=== PATIENT | female | born 1955 | race Caucasian/White ===

== ENCOUNTER 2018-09-19 00:56 | Inpatient (IN) | payer OTHER ==
[2018-09-19 02:52] LABS: ADD MAN DIFF? NO
[2018-09-19 02:55] LABS: BASOPHILS % 0.3 % (0.0-2.0); EOSINOPHILS # 0.1 10^3/ul (0.0-0.5); EOSINOPHILS % 0.6 % (0.0-7.0); HEMATOCRIT 42.9 % (37.0-47.0); LYMPHOCYTES # 2.1 10^3/ul (0.8-2.9); LYMPHOCYTES % 13.7 % (15.0-51.0); MEAN CORPUSCULAR HGB CONC 32.6 g/dl (32.0-37.0); MEAN CORPUSCULAR VOLUME 91.9 fl (82.0-101.0); MEAN PLATELET VOLUME 9.8 fl (7.4-10.4); MONOCYTE # 1.1 10^3/ul (0.3-0.9); MONOCYTES % 6.9 % (0.0-11.0); PLATELET COUNT 351 10^3/UL (140-415); RED BLOOD COUNT 4.67 10^6/ul (4.20-5.40); RED CELL DISTRIBUTION WIDTH 13.1 % (11.5-14.5)
[2018-09-19 02:55] LABS: WHITE BLOOD COUNT 15.3 10^3/ul (4.8-10.8)
[2018-09-19] MEDS: ONDANSETRON 4 MG INJ IV (03:08)
[2018-09-19] MEDS: KETOROLAC 15 MG INJ IV ×5 (03:09→23:28)
[2018-09-19] MEDS: LIDOCAINE/MYLANTA 40 ML BTL PO (03:10)
[2018-09-19] MEDS: BELLADONNA/PHENOBARBITAL TAB PO (03:10)
[2018-09-19 03:12] LABS: ADD UMIC YES; ALANINE AMINOTRANSFERASE 30 IU/L (13-69); ALBUMIN 4.5 g/dl (3.3-4.9); ALKALINE PHOSPHATASE 96 IU/L (42-121); ANION GAP 11 (5-13); ASPARTATE AMINO TRANSFERASE 25 IU/L (15-46); BILIRUBIN,INDIRECT 0.4 mg/dl (0-1.1); BILIRUBIN,TOTAL 0.4 mg/dl (0.2-1.3); BLOOD UREA NITROGEN 12 mg/dl (7-20); CALCIUM 9.9 mg/dl (8.4-10.2); CARBON DIOXIDE 29 mmol/L (21-31); CHLORIDE 100 mmol/L (97-110); CREATININE 0.63 mg/dl (0.44-1.00); Estimated GFR > 60 mL/min (>60); GLUCOSE 208 mg/dl (70-220); LIPASE 141 U/L (23-300); POTASSIUM 3.8 mmol/L (3.5-5.1); SODIUM 140 mmol/L (135-144); TOTAL PROTEIN 7.5 g/dl (6.1-8.1); UR ASCORBIC ACID NEGATIVE (NEGATIVE); UR BACTERIA MODERATE /HPF (NONE SEEN); UR BILIRUBIN (Dip) NEGATIVE (NEGATIVE); UR BLOOD (Dip) 2+ mg/dL (NEGATIVE); UR CLARITY SLIGHTLY CLOUDY (CLEAR); UR COLOR YELLOW (YELLOW); UR GLUCOSE (Dip) 3+ mg/dL (NEGATIVE); UR KETONES (Dip) NEGATIVE (NEGATIVE); UR LEUKOCYTE ESTERASE (Dip) 3+ Leu/ul (NEGATIVE); UR NITRITE (Dip) POSITIVE (NEGATIVE); UR RBC 23 /HPF (0-5); UR SPECIFIC GRAVITY (Dip) 1.018 (1.003-1.030); UR TOTAL PROTEIN (Dip) 1+ mg/dl (NEGATIVE); UR UROBILINOGEN (Dip) NEGATIVE (NEGATIVE); UR WBC 134 /HPF (0-5)
[2018-09-19 03:14] LABS: INR 0.85; PROTIME 11.7 Sec (11.9-14.9); PT RATIO 0.9
[2018-09-19 03:19] LABS: PARTIAL THROMBOPLASTIN TIME 28.3 Sec (23.0-35.0)
[2018-09-19] MEDS: SOD CHLORIDE 0.9% 1,000 ML IV ×4 (03:27→23:28)
[2018-09-19] MEDS: CEFTRIAXONE 1 GM/50 ML (PMX) 50 ML IVPB (03:27)
[2018-09-19] MEDS ORDERED: NACL 0.9% 3 ML SYG IV (05:30)
[2018-09-19] MEDS ORDERED: BISACODYL (EC) 5 MG TAB PO (05:30)
[2018-09-19] MEDS: TAMSULOSIN (SR) 0.4 MG CAP PO ×2 (06:05→21:03)
[2018-09-19] MEDS: PIPER-TAZO 3.375 GM IV (PMX) 100 ML IVPB (06:05)
[2018-09-19] MEDS: HYDROmorphONE 0.5 MG/0.5 ML SYG IV (09:18)
[2018-09-19] MEDS: PANTOPRAZOLE (EC) 40 MG TAB PO (09:18)
[2018-09-19] MEDS: LOSARTAN 50 MG TAB PO (09:19)
[2018-09-19] MEDS ORDERED: DEXTROSE 50% 50 ML SYRINGE IV ×2 (15:30)
[2018-09-19] MEDS ORDERED: GLUCOSE GEL 15 GRAM TUBE BUCCAL (15:30)
[2018-09-19] MEDS ORDERED: GLUCAGON 1 MG INJ IM (15:30)
[2018-09-19] MEDS ORDERED: GLUCOSE GEL 15 GRAM TUBE PO ×2 (15:30)
[2018-09-19] MEDS: ACETAMINOPHEN 325 MG TAB PO (16:31)
[2018-09-19] MEDS: INSULIN GLARGINE [LANTus] (100 UNITS/ML) SYG SC (17:28)
[2018-09-19] MEDS: INSULIN ASPART [NOVOLOG] 3 ML PEN SC ×2 (17:32→21:00)
[2018-09-19] MEDS: ATORVASTATIN 10 MG TAB PO (21:03)
[2018-09-19] MEDS: LACTOBACILLUS RHAMNOSUS CAP PO (21:03)
[2018-09-20] MEDS: ACETAMINOPHEN 325 MG TAB PO ×2 (02:19→08:27)
[2018-09-20] MEDS: CEFTRIAXONE 2 GM/50 ML (PMX) 50 ML IVPB (02:19)
[2018-09-20] MEDS: KETOROLAC 15 MG INJ IV ×4 (05:37→22:49)
[2018-09-20] MEDS: PANTOPRAZOLE (EC) 40 MG TAB PO (05:38)
[2018-09-20 05:53] LABS: ADD MAN DIFF? NO
[2018-09-20 05:57] LABS: WHITE BLOOD COUNT 4.9 10^3/ul (4.8-10.8)
[2018-09-20 05:57] LABS: BASOPHILS % 0.4 % (0.0-2.0); EOSINOPHILS # 0.1 10^3/ul (0.0-0.5); EOSINOPHILS % 2.9 % (0.0-7.0); HEMATOCRIT 34.3 % (37.0-47.0); HEMOGLOBIN 11.3 g/dl (12.0-16.0); LYMPHOCYTES # 1.8 10^3/ul (0.8-2.9); LYMPHOCYTES % 36.3 % (15.0-51.0); MEAN CORPUSCULAR HEMOGLOBIN 30.2 pg (29.0-33.0); MEAN CORPUSCULAR HGB CONC 32.9 g/dl (32.0-37.0); MEAN CORPUSCULAR VOLUME 91.7 fl (82.0-101.0); MEAN PLATELET VOLUME 9.9 fl (7.4-10.4); MONOCYTE # 0.4 10^3/ul (0.3-0.9); MONOCYTES % 8.9 % (0.0-11.0); NEUTROPHIL # 2.5 10^3/ul (1.6-7.5); NEUTROPHILS % 51.1 % (39.0-77.0); PLATELET COUNT 272 10^3/UL (140-415); RED BLOOD COUNT 3.74 10^6/ul (4.20-5.40); RED CELL DISTRIBUTION WIDTH 13.1 % (11.5-14.5)
[2018-09-20 06:14] LABS: ALANINE AMINOTRANSFERASE 32 IU/L (13-69); ALBUMIN 2.9 g/dl (3.3-4.9); ALBUMIN/GLOBULIN RATIO 1.26; ALKALINE PHOSPHATASE 62 IU/L (42-121); ANION GAP 6 (5-13); ASPARTATE AMINO TRANSFERASE 20 IU/L (15-46); BILIRUBIN,INDIRECT 0.3 mg/dl (0-1.1); BILIRUBIN,TOTAL 0.3 mg/dl (0.2-1.3); BLOOD UREA NITROGEN 7 mg/dl (7-20); CALCIUM 8.5 mg/dl (8.4-10.2); CARBON DIOXIDE 27 mmol/L (21-31); CHLORIDE 110 mmol/L (97-110); CREATININE 0.56 mg/dl (0.44-1.00); Estimated GFR > 60 mL/min (>60); GLUCOSE 110 mg/dl (70-220); MAGNESIUM 1.6 mg/dl (1.7-2.5); SODIUM 143 mmol/L (135-144); TOTAL PROTEIN 5.2 g/dl (6.1-8.1)
[2018-09-20 06:28] LABS: T3 UPTAKE 35.8 % (23.5-40.5)
[2018-09-20] MEDS: INSULIN ASPART [NOVOLOG] 3 ML PEN SC ×7 (08:00→21:26)
[2018-09-20] MEDS: INSULIN GLARGINE [LANTus] (100 UNITS/ML) SYG SC (08:16)
[2018-09-20] MEDS: LOSARTAN 50 MG TAB PO (08:17)
[2018-09-20] MEDS: LACTOBACILLUS RHAMNOSUS CAP PO ×2 (08:17→21:26)
[2018-09-20] MEDS: ONDANSETRON 4 MG INJ IV (08:29)
[2018-09-20] MEDS: SOD CHLORIDE 0.9% 1,000 ML IV ×2 (11:13→22:49)
[2018-09-20 17:33] LABS: FREE THYROXINE INDEX (Calc) 4.19 ug/ml (0.65-3.89)
[2018-09-20 17:35] LABS: T4 (THYROXINE) 11.7 ug/dl (5.5-11.0)
[2018-09-20] MEDS: ATORVASTATIN 10 MG TAB PO (21:26)
[2018-09-21] MEDS: CEFTRIAXONE 2 GM/50 ML (PMX) 50 ML IVPB (03:04)
[2018-09-21] MEDS: PANTOPRAZOLE (EC) 40 MG TAB PO (06:18)
[2018-09-21] MEDS: SOD CHLORIDE 0.9% 1,000 ML IV ×2 (07:22→12:17)
[2018-09-21] MEDS: INSULIN ASPART [NOVOLOG] 3 ML PEN SC ×7 (08:00→20:32)
[2018-09-21] MEDS: LACTOBACILLUS RHAMNOSUS CAP PO ×2 (08:10→20:30)
[2018-09-21] MEDS: LOSARTAN 50 MG TAB PO (08:10)
[2018-09-21] MEDS: INSULIN GLARGINE [LANTus] (100 UNITS/ML) SYG SC (08:13)
[2018-09-21] MEDS: HYDROmorphONE 0.5 MG/0.5 ML SYG IV (12:23)
[2018-09-21] MEDS: MEROPENEM 1 GM/50ML(PMX) 50 ML IVPB ×2 (16:19→23:38)
[2018-09-21] MEDS: ATORVASTATIN 10 MG TAB PO (20:30)
[2018-09-21] MEDS: ACETAMINOPHEN 325 MG TAB PO (23:42)
[2018-09-22 02:37] LABS: ADD MAN DIFF? NO
[2018-09-22 02:39] LABS: WHITE BLOOD COUNT 6.5 10^3/ul (4.8-10.8)
[2018-09-22 02:39] LABS: BASOPHILS % 0.5 % (0.0-2.0); EOSINOPHILS # 0.1 10^3/ul (0.0-0.5); EOSINOPHILS % 1.7 % (0.0-7.0); HEMATOCRIT 39.7 % (37.0-47.0); HEMOGLOBIN 12.9 g/dl (12.0-16.0); LYMPHOCYTES # 2.5 10^3/ul (0.8-2.9); LYMPHOCYTES % 38.5 % (15.0-51.0); MEAN CORPUSCULAR HEMOGLOBIN 29.5 pg (29.0-33.0); MEAN CORPUSCULAR HGB CONC 32.5 g/dl (32.0-37.0); MEAN CORPUSCULAR VOLUME 90.6 fl (82.0-101.0); MEAN PLATELET VOLUME 9.7 fl (7.4-10.4); MONOCYTE # 0.6 10^3/ul (0.3-0.9); NEUTROPHIL # 3.3 10^3/ul (1.6-7.5); PLATELET COUNT 340 10^3/UL (140-415); RED BLOOD COUNT 4.38 10^6/ul (4.20-5.40); RED CELL DISTRIBUTION WIDTH 12.9 % (11.5-14.5)
[2018-09-22 02:58] LABS: PROTIME 12.3 Sec (11.9-14.9)
[2018-09-22 02:59] LABS: PARTIAL THROMBOPLASTIN TIME 28.8 Sec (23.0-35.0)
[2018-09-22] MEDS ORDERED: hydrALAzine 20 MG INJ IV (03:00)
[2018-09-22] MEDS: ASPIRIN 81 MG TAB PO (03:01)
[2018-09-22 03:02] LABS: ANION GAP 8 (5-13); BLOOD UREA NITROGEN 6 mg/dl (7-20); CALCIUM 9.3 mg/dl (8.4-10.2); CARBON DIOXIDE 28 mmol/L (21-31); CHLORIDE 103 mmol/L (97-110); Estimated GFR > 60 mL/min (>60); GLUCOSE 194 mg/dl (70-220); POTASSIUM 3.6 mmol/L (3.5-5.1); SODIUM 139 mmol/L (135-144)
[2018-09-22] MEDS: PANTOPRAZOLE (EC) 40 MG TAB PO (06:03)
[2018-09-22] MEDS: MEROPENEM 1 GM/50ML(PMX) 50 ML IVPB ×2 (08:26→21:34)
[2018-09-22] MEDS: LACTOBACILLUS RHAMNOSUS CAP PO ×2 (08:27→21:33)
[2018-09-22] MEDS: INSULIN GLARGINE [LANTus] (100 UNITS/ML) SYG SC (08:52)
[2018-09-22] MEDS: INSULIN ASPART [NOVOLOG] 3 ML PEN SC ×7 (08:52→21:00)
[2018-09-22] MEDS: ATORVASTATIN 80 MG TAB PO (11:31)
[2018-09-22] MEDS: DOCUSATE SODIUM 100 MG CAP PO (21:33)
[2018-09-22] MEDS: ATORVASTATIN 10 MG TAB PO (21:33)
[2018-09-22] MEDS: ACETAMINOPHEN 325 MG TAB PO (21:55)
[2018-09-23] MEDS: PANTOPRAZOLE (EC) 40 MG TAB PO (06:10)
[2018-09-23 06:35] LABS: CHOL/HDL RATIO 2.5 RATIO; HDL CHOLESTEROL 51 mg/dl (35-98); LDL CHOLESTEROL,CALCULATED 61 mg/dl; TRIGLYCERIDES 81 mg/dl (0-149)
[2018-09-23 06:35] LABS: CHOLESTEROL 128 mg/dl (100-200)
[2018-09-23] MEDS: INSULIN ASPART [NOVOLOG] 3 ML PEN SC ×6 (07:55→17:35)
[2018-09-23] MEDS: MEROPENEM 1 GM/50ML(PMX) 50 ML IVPB (08:22)
[2018-09-23] MEDS: LACTOBACILLUS RHAMNOSUS CAP PO (08:22)
[2018-09-23] MEDS: ASPIRIN 81 MG TAB PO (08:22)
[2018-09-23] MEDS: INSULIN GLARGINE [LANTus] (100 UNITS/ML) SYG SC (08:44)
[2018-09-23 16:04] LABS: HEPATITIS B SURFACE ANTIGEN NEGATIVE (NEGATIVE)
[2018-09-23 16:21] LABS: HEPATITIS C VIRAL ANTIBODY NEGATIVE (NEGATIVE)
[2018-09-23] MEDS ORDERED: ATORVASTATIN 80 MG TAB PO (21:00)
== END 2018-09-23 18:39 | disposition home health service (06) | DRG 694 ==
LOC: TEL 09-22 03:15 → E/R 00:56 → PP2 05:20
DX: N20.0 Calculus of kidney (principal); N39.0 Urinary tract infection, site not specified; B69.0 Cysticercosis of central nervous system; G81.94 Hemiplegia, unspecified affecting left nondominant side; B96.20 Unspecified Escherichia coli [E. coli] as the cause of diseases classified elsewhere; E11.9 Type 2 diabetes mellitus without complications; E78.5 Hyperlipidemia, unspecified; I10 Essential (primary) hypertension; I49.9 Cardiac arrhythmia, unspecified; K76.0 Fatty (change of) liver, not elsewhere classified; K29.70 Gastritis, unspecified, without bleeding; K80.80 Other cholelithiasis without obstruction; R29.700 NIHSS score 0; Z16.12 Extended spectrum beta lactamase (ESBL) resistance; Z79.84 Long term (current) use of oral hypoglycemic drugs
CPT/HCPCS: 36415; 70450; 70551; 71045; 74018; 74176; 80048; 80053; 80061; 81001; 82962; 83036; 83690; 83735; 84436; 84443; 84479; 85025; 85610; 85730; 86803; 87086; 87340; 96374; 96375; 97161; 99285-25